=== PATIENT | female | born 1970 | race Caucasian/White ===

== ENCOUNTER 2018-05-10 02:16 | Emergency (ER) | payer OTHER ==
[~2018-05-10] VITALS: Ht 177.8 cm; Wt 82.6 kg
[2018-05-10 02:29] VITALS: Ht 177.8 cm; Wt 82.6 kg
[2018-05-10 05:06] VITALS: BP 118/69
== END 2018-05-10 05:06 | disposition home or self-care (01) ==
LOC: ED 02:16
DX: J11.1 Influenza due to unidentified influenza virus with other respiratory manifestations (principal); Z88.0 Allergy status to penicillin; Z88.5 Allergy status to narcotic agent
CPT/HCPCS: 87804; J1885; Q0092